=== PATIENT | male | born 1960 | race Caucasian/White ===

== ENCOUNTER 2023-08-14 15:19 | Outpatient (CLI) | payer BC, SELFPAY ==
[2023-08-14 15:38] LABS: Hematocrit 46.5 % (42.0-52.0); Hemoglobin 15.9 g/dL (14.0-18.0); Mean Corpuscular HGB Conc 34.2 g/dl (32-36); Mean Corpuscular Hemoglobin 31.3 pg (26-34); Mean Corpuscular Volume 91.5 fl (80-100); Mean Platelet Volume 9.6 fl (7.4-10.4); Platelet Count Result 205 k/mm3 (150-375); Red Blood Count 5.08 M/mm3 (4.6-6.20); White Blood Count 6.3 K/mm3 (4.5-10.0)
[2023-08-14 15:50] LABS: Alanine Aminotransferase 22 U/L (6-50); Albumin Level 4.5 g/dL (3.5-5.1); Alkaline Phosphatase 60 U/L (38-126); Anion Gap 6 mmol/L (8-16); Aspartate Amino Transferase 29 U/L (17-59); Bilirubin,Total 0.7 mg/dL (0.2-1.3); Blood Urea Nitrogen 19 mg/dL (9-20); CRP < 0.5 mg/dL (<1.0); Calcium 9.9 mg/dL (8.4-10.2); Carbon Dioxide 28 mmol/L (22-30); Chloride 101 mmol/L (98-107); Estimated Glomerular Filt Rate > 60; Glucose 101 mg/dL (65-110); Potassium 4.3 mmol/L (3.4-5.0); Sodium 135 mmol/L (137-145)
[2023-08-14 16:34] LABS: Erythrocyte Sedimentation Rate 3 mm/hr (0-20)
[2023-08-15 15:34] LABS: Prostate Specific Antigen 3.2 ng/mL (< OR = 4.0)
== END 2023-08-14 15:20 | disposition home or self-care (01) ==
PROVIDERS: PCP Family Medicine; Visit Provider Nurse Practitioner
DX: K63.9 Disease of intestine, unspecified (principal); N40.0 Benign prostatic hyperplasia without lower urinary tract symptoms
CPT/HCPCS: 36415; 80053; 84153; 85027; 85652; 86140; G0103

== ENCOUNTER 2023-08-15 11:24 | Outpatient (CLI) | payer BC, SELFPAY ==
[2023-08-21 18:27] LABS: Calprotectin, Stool 21 mcg/g
== END 2023-08-15 11:25 | disposition home or self-care (01) ==
PROVIDERS: PCP Family Medicine; Visit Provider Nurse Practitioner
DX: K63.9 Disease of intestine, unspecified (principal); R10.32 Left lower quadrant pain
CPT/HCPCS: 83993; 87045; 87427; 87449

== ENCOUNTER 2023-10-21 00:47 | Day surgery (SDC) | payer BC, SELFPAY ==
[2023-09-24 12:21] VITALS: BMI 26.4
--- NOTE | 2023-10-18 10:16 | SUR.PREOP ---
Patient called regarding upcoming procedure. Reviewed preop instructions, appointment times, and procedure prep.
[2023-10-21 09:58] VITALS: BP 158/79; PULSE 76; RESP 18; TEMP 36.1; O2SAT 99
[2023-10-21] MEDS: LACTATED RINGERS 1,000 ML 150 ML IV CONT (10:10)
--- NOTE | 2023-10-21 10:54 | WPDANESEPPF ---
Anes - Initial Pre Proc Eval Procedure: Operation Date: 10/21/23 11:00 Proposed Procedures p Colonoscopy - Shay Sesay MD Date/Time: 10/21/23 10:54 Surgeon: Shay Sesay MD Pre Op Diagnosis: Disease of intestine, Left lower quadrant pain Patient Data Age: 62 Gender: M Height: 1.8 m Weight: 87.7 kg Last Vital Signs Temp 97 F L 10/21/23 09:58 Pulse 76 10/21/23 09:58 Resp 18 10/21/23 09:58 BP 158/79 H 10/21/23 09:58 Pulse Ox 99 10/21/23 09:58 O2 Del Method Room Air 10/21/23 09:58 Allergies Allergy/AdvReac Type Severity Reaction Status Date / Time penicillin G Allergy Unknown HIVES Verified 10/21/23 09:57 Home Medications Medication Instructions Recorded Confirmed Type celecoxib 200 mg capsule 200 mg PO DAILY 08/14/23 09/24/23 History cimetidine 200 mg tablet 200 mg PO ONCE 08/14/23 09/24/23 History Daily Probiotic PO DAILY 09/24/23 History Patient hx anesthesia problems: none Family hx anesthesia problems: none Results Review: All pre-operative results and documents have been reviewed as part of the pre-operative evaluation. [facility] Past Medical History Medical History (Updated 08/14/23 @ 15:29 by Shanel Peacock APRN) Abdominal pain BMI 27.0-27.9,adult Diarrhea Diverticulitis Diverticulosis Enlarged prostate External hemorrhoid Gluten intolerance Hemorrhoids LLQ abdominal pain Mural thickening of sigmoid colon Surgical History Surgical History (Updated 08/14/23 @ 13:55 by JULIO CÉSAR Watson) H/O colonoscopy H/O hernia repair H/O vasectomy History of tonsillectomy Family History Family History Father Diabetes mellitus Hypertension Heart disease Mother History of kidney cancer Heart disease Ulcerative colitis Sibling No problems noted. Social History Social History (Updated 08/14/23 @ 13:58 by JULIO CÉSAR Watson) Smoking status: Never smoker Second hand tobacco smoke exposure: Yes Alcohol intake: current Drinks per week: 1 Alcohol use details: once a week Substance use: current Substance use type: marijuana Other substance usage details: edibles Lack of Transportation: No Lack of Food: Never True Current Housing: I Have Housing Concerned About Future Housing: No Difficulty Paying Gas/Electric Bills: No Difficulty Paying for Meds: No Currently Unemployed: No Education: Bachelor's Degree Difficulty w/ Childcare or Family Care: No Living arrangements: with family Occupation/Education: retired 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 Gender identity (if verbalized by the patient): Male Spiritual care concerns: No Anes - Eval Final PreProcedure Day of Procedure 10/21/23 10:54 Patient weight: normal Heart: regular rate and rhythm Lungs: clear to auscultation Airway: Mallampati scale class II Neurological: alert and oriented Last oral intake: >/= 8 hours ASA classification: II Emergent: no Anesthetic plan: proceed Anesthesia type and monitoring: general GIVS and standard monitoring Results Review: All pre-operative results and documents have been reviewed as part of the pre-operative evaluation. Informed Consent: The patient's anesthetic plan and its attendant risks and benefits were discussed with the patient/family/POA. Questions were solicited and answers provided to the satisfaction of the patient/family/POA.
--- NOTE | 2023-10-21 10:56 | PM.HPGS ---
History of Present Illness History of Present Illness Consent: Risks, benefits, and alternatives have been discussed and questions answered. Patient agrees to proceed with procedure. Chief complaint: Disease of intestine, Left lower quadrant pain Narrative: Jonatan Brand is a 62 year old male with previous episode of diverticulitis, had colonoscopy 2019 Review of Systems Constitutional: Constitutional: Denies headache(s) and Denies weakness Eyes: Eyes: Denies blurry vision ENT: Reports Normal hearing present, Denies headache(s) and Denies neck pain Cardiovascular: Cardiovascular: Denies chest pain and Denies dyspnea Respiratory: Respiratory: Denies dyspnea Gastrointestinal: Gastrointestinal: Reports no additional gastrointestinal complaints Genitourinary: Genitourinary: Denies dysuria Musculoskeletal: Musculoskeletal: Denies neck pain Integumentary/Breasts: Skin/Breast: Denies dry skin Neurologic: Reports Normal hearing present, Denies headache(s) and Denies weakness Psychiatric: Psychiatric: Denies anxiety Endocrine: Endocrine: Denies change in body appearance Hematologic/Lymphatic: Hematologic/Lymphatic: Denies easy bleeding Allergic/Immunologic: Allergic/Immunologic: Denies urticaria PMFSH Past Medical History Medical History (Updated 08/14/23 @ 15:29 by Shanel Peacock, DAIJA) Abdominal pain BMI 27.0-27.9,adult Diarrhea Diverticulitis Diverticulosis Enlarged prostate External hemorrhoid Gluten intolerance Hemorrhoids LLQ abdominal pain Mural thickening of sigmoid colon Surgical History Surgical History (Updated 08/14/23 @ 13:55 by JULIO CÉSAR Watson) H/O colonoscopy H/O hernia repair H/O vasectomy History of tonsillectomy Family History Family History Father Diabetes mellitus Hypertension Heart disease Mother History of kidney cancer Heart disease Ulcerative colitis Sibling No problems noted. Social History Social History (Updated 08/14/23 @ 13:58 by JULIO CÉSAR Watson) Smoking status: Never smoker Second hand tobacco smoke exposure: Yes Alcohol intake: current Drinks per week: 1 Alcohol use details: once a week Substance use: current Substance use type: marijuana Other substance usage details: edibles Lack of Transportation: No Lack of Food: Never True Current Housing: I Have Housing Concerned About Future Housing: No Difficulty Paying Gas/Electric Bills: No Difficulty Paying for Meds: No Currently Unemployed: No Education: Bachelor's Degree Difficulty w/ Childcare or Family Care: No Living arrangements: with family Occupation/Education: retired 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 Gender identity (if verbalized by the patient): Male Spiritual care concerns: No Meds Home Medications and Allergies Home Medications Medication Instructions Recorded Confirmed Type celecoxib 200 mg capsule 200 mg PO DAILY 08/14/23 09/24/23 History cimetidine 200 mg tablet 200 mg PO ONCE 08/14/23 09/24/23 History Daily Probiotic PO DAILY 09/24/23 History Allergies Allergy/AdvReac Type Severity Reaction Status Date / Time penicillin G Allergy Unknown HIVES Verified 10/21/23 09:57 Vital Signs Vital Signs - 24 hr 10/21/23 09:58 Temperature 97 F L Pulse Rate 76 Respiratory Rate 18 Blood Pressure 158/79 H Pulse Oximetry 99 Oxygen Delivery Room Air Exam Const: General: comfortable and no acute distress HENMT: Face/Nose/Sinus: Normal nares present Eyes: General: appearance normal, both eyes and all related structures Neck: Neck: no JVD Resp: Auscultation: clear to auscultation bilaterally Cardio: Rate: regular rate Rhythm: regular rhythm GI: Inspection: non-distended GI Palp: Yes Soft to palpation Skin: General skin exam: normal color Neuro: General: gait normal Speech: normal speech
[2023-10-21 11:08] VITALS: BP 110/64; PULSE 77; RESP 18; O2SAT 97
[2023-10-21 11:26] VITALS: BP 125/81; PULSE 68; RESP 18; O2SAT 100
[2023-10-21 11:29] VITALS: BP 125/82; PULSE 62; RESP 18; O2SAT 99
== END 2023-10-21 11:40 | disposition home or self-care (01) ==
PROVIDERS: PCP Family Medicine; Visit Provider Internal Medicine Gastroenterology
PROC: 0DJD8ZZ Inspection of Lower Intestinal Tract, Via Natural or Artificial Opening Endoscopic (ICD-10-PCS; CPT 45378; principal; 2023-10-21 11:00)
DX: K57.30 Diverticulosis of large intestine without perforation or abscess without bleeding (principal); K64.8 Other hemorrhoids; F12.90 Cannabis use, unspecified, uncomplicated; Z98.890 Other specified postprocedural states; Z82.49 Family history of ischemic heart disease and other diseases of the circulatory system; Z80.51 Family history of malignant neoplasm of kidney
CPT/HCPCS: 45378; J2704; J7120

== ENCOUNTER 2024-11-12 13:15 | Outpatient (RCR) | payer BC, SELFPAY ==
--- NOTE | 2024-08-31 15:28 | PTOPEVAL1 ---
Assessment and note entered by Berna Bajwa, PT Evaluation Information Assessment Status Evaluation Diagnosis parasthesia RLE ICD-10 Condition Codes (PT) Pain in right hip M25.551,Weakness R53.1 Onset ~1 year Subjective Information gets the pain, N/T goes form left to right front and into the inside of the right groin Had surgery when was a baby right side for inguinal hernia Has noticed swelling in crease of groin. when tweeks the back is on the left side. Last two weeks has been taking Celebrex more consistently N/T and pain will go down into ankle and inside of leg. Sitting longer periods stiffens up the hip in addition to numbness. Sitting on bleacher is awful . Will bite on the hamstring and butt bone . also worst with laying in bed on sides, will sometimes keep him awake Has been wearing over the counter orthotocs for years since first therapy for low back about 10 years ago Reported Pain Level Pain Score 2: Self Report Assessment PT Clinical Summary Pt presents with complaints of N/T RLE inside of leg and into ankle. Reports will also get some discomfort in right posterior groin and will also get swelling in the groin area at times. X-rays show narrowing of facets and disc space in lower lumbar. Evaluation demo's decreased lumbopelvic strength, gluteus medius strength deficit R>L, decreased hip flexion and extension, and possible pelvic upslip likely leading to compensatory and spasmed musculature. Pt will benefit from physical therapy in order to address alignment issues, muscle spasms, lumbopelvic stability all to decrease discomfort and return to PLOF. Plan of Care Interventions Electrical Stimulation,Hot Pack/Cold Pack,Manual Therapy,Mechanical Traction,Neuro Re-education, Patient/Caregiver Educati,Therapeutic Activities, Therapeutic Exercise,Self-Care/Home Management, Ultrasound,Other Other Interventions Taping, bracing, IASTM PT Services Indicated Yes Treatment Frequency and 1-2 x weekly x 16 visits Duration These treatments will address the objective and functional deficits as defined above. The patient will be advanced safely and appropriately in order for the patient to progress towards his/her prior level of function. Additional exercises will be introduced and as well as a comprehensive home exercise program upon discharge, if needed, ?to ensure carryover of functional gains achieved in the clinic. This treatment plan has been reviewed and agreement upon by the patient.
--- NOTE | 2024-08-31 15:28 | OPREHPOC ---
Outpatient Therapy Plan of Care This is a Multidisciplinary Plan of Care that may contain components documented by all disciplines (PT, OT, and ST.) PT Problem 1 PT Problem #1 Knowledge Deficit PT Goal 1 Goal / Goal Update Pt will be independent in HEP Pt will verbalize understanding of diagnosis and prognosis Target Visit 8 PT Problem 2 PT Problem #2 Pain PT Goal 1 Goal / Goal Update Pt will report greatest pain level at 3/10 or less to improve ADLs and activities Target Visit 8 PT Goal 2 Goal / Goal Update Pt will report resolution of pain to return to PLOF Target Visit 16 PT Problem 3 PT Problem #3 Impaired Strength PT Goal 1 Goal / Goal Update Pt will demo core strength of 3+/5 of the TRAM to improve lumbopelvic stability Target Visit 8 PT Goal 2 Goal / Goal Update Pt will demo 4/5 or greater strength in BLE to improve lumbopelvic stability Target Visit 16
--- NOTE | 2024-11-24 11:27 | PCPTNOTE ---
This treatment is being continued on visit number [id number]. Please see documentation on both accounts to view progress. Completed interventions, outcomes, and problems have been marked as Inactive to facilitate the copying of the Care plan routine for recurring accounts.
== END 2024-12-21 10:29 | disposition home or self-care (01) ==
LOC: ANHHIPT 13:15
PROVIDERS: PCP Physician Assistant Medical; Visit Provider Physician Assistant Medical
DX: R20.2 Paresthesia of skin (principal); M25.551 Pain in right hip; R53.1 Weakness
CPT/HCPCS: 97014; 97035; 97110; 97140; 97161; G0283

== ENCOUNTER 2024-12-21 11:22 | Outpatient (RCR) | payer BC, SELFPAY ==
--- NOTE | 2024-11-24 11:29 | PCPTNOTE ---
The treatment documented on this account is a continuation of the treatment documented on visit number [id number]. Please see documentation on both accounts to view progress. The Plan of Care has been transitioned and updated within the new V#. I have addressed and agree with the discipline specific Problems, Interventions, and Goals for the current certification period. Completed interventions, outcomes, and problems have been marked as Inactive to facilitate the copying of the Care plan routine for recurring accounts.
--- NOTE | 2024-12-15 09:40 | PTOPDC ---
Assessment and note entered by Berna Bajwa, PT Evaluation Information Assessment Status Discharge - Pt Not Present Diagnosis parasthesia RLE ICD-10 Condition Codes (PT) Pain in right hip M25.551,Weakness R53.1 Onset ~1 year Assessment PT Clinical Summary Pt presented to clerical and stated he was feeling better, to cancel the remainder of his appointments. He attended 9 of 10 appointments. Progress to goals unknown as we were unable to test his progress due to his self-discharge. Plan of Care PT Services Indicated No
== END 2024-12-21 11:22 | disposition home or self-care (01) ==
LOC: ANHHIPT 11:22
PROVIDERS: PCP Physician Assistant Medical; Visit Provider Physician Assistant Medical
DX: R20.2 Paresthesia of skin (principal); M25.551 Pain in right hip; R53.1 Weakness
CPT/HCPCS: 99199

== ENCOUNTER 2025-09-03 14:13 | Outpatient (CLI) | payer BC, SELFPAY ==
--- NOTE | ~2025-09-03 | CT_ITS ---
EXAMINATION: CT abdomen pelvis w con DATE: 09/03/2025 14:40 INDICATION: 64 year-old with left lower quadrant pain. History of diverticulosis. Dysuria. TECHNIQUE: Computed tomography (CT) of the abdomen and pelvis was performed with 100 cc of intravenous contrast. Automated exposure control and iterative reconstruction technique were employed. The dose-length product was 892.59 mGy-cm. COMPARISON: Lumbar spine x-ray dated 08/02/2024 FINDINGS: Lung bases do not show any acute findings. Hiatus hernia in the lower mediastinum. Mild fatty changes of liver. 2 cm cyst of the left lobe of the liver. Gallbladder shows no acute findings. Pancreas and kidneys do not show acute findings. The prostate gland is significantly enlarged with prominent median lobe. Large bladder diverticulum from right posterior aspect of the urinary bladder is noted measuring 5.6 cm in diameter. No herniations are seen in the pelvis. No focal inflammatory changes. Scattered diverticula of sigmoid colon are noted. No acute findings of the lumbar spine. IMPRESSION: 1. No acute findings in the upper abdomen. 2. Enlargement of prostate gland with prominent median lobe. Please correlate with digital rectal exam findings and PSA level. 3. 5.6 cm size bladder diverticulum from the right posterior aspect of the bladder.. 4. Diverticulosis of sigmoid colon. Reviewed, dictated and finalized at location [facility] IMPRESSION: 1. No acute findings in the upper abdomen. 2. Enlargement of prostate gland with prominent median lobe. Please correlate w ith digital rectal exam findings and PSA level. 3. 5.6 cm size bladder diverticulum from the right posterior aspect of the blad rosemary.. 4. Diverticulosis of sigmoid colon.
== END 2025-09-03 14:14 | disposition home or self-care (01) ==
LOC: MICIMG 14:14
PROVIDERS: PCP Physician Assistant Medical; Visit Provider Physician Assistant Medical
DX: N40.0 Benign prostatic hyperplasia without lower urinary tract symptoms (principal); N32.3 Diverticulum of bladder; K57.30 Diverticulosis of large intestine without perforation or abscess without bleeding
CPT/HCPCS: 74177; Q9967